=== PATIENT | male | born 1995 | race Caucasian/White ===

== ENCOUNTER 2024-02-03 09:47 | Emergency (ER) | payer OTHER ==
[2024-02-03] MEDS ORDERED: TETRACAINE HCL 0.5% 4ML OPTH ONE (10:07)
[2024-02-03] MEDS ORDERED: FLUORESCEIN SODIUM 1 MG/WRAP ONE (10:07)
--- NOTE | 2024-02-03 10:28 | EDPHYS ---
Physician Documentation [facility] Name: Gio Stapleton Age: 28 yrs Sex: Male : 1995 Arrival Date: 02/03/2024 Time: 09:47 Bed 15 Private MD: ED Physician Adolfo Merritt HPI: 02/02 10:17 This 28 yrs old Male presents to ER via Ambulatory with complaints of Eye Problem. rn 10:17 The patient is experiencing foreign body sensation, tearing, to the left eye, caused by rn debris, dust. Onset: The symptoms/episode began/occurred yesterday. Aggravated by nothing. Alleviated by nothing. Severity of symptoms: At their worst the symptoms were moderate in the emergency department the symptoms are unchanged. The patient has not experienced similar symptoms in the past. Patient sent over from [facility], diagnosed with corneal abrasion, prescribed antibiotics. Patient reports got something in his eye while landscaping yesterday. Was not high-speed injury, reports irritated eyes with clear watery drainage. Only left eye.. Historical: - Allergies: 09:56 Codeine; hb 09:56 PENICILLINS; hb - Home Meds: 09:56 trazodone Oral [Active]; hb - PMHx: 09:56 Bipolar disorder; hb - PSHx: 09:56 None; hb - Immunization history:: Adult Immunizations up to date. - Infectious Disease History:: Denies. - Social history:: Smoking status: Patient denies any tobacco usage or history of. - Family history:: not pertinent. - Hospitalizations: : No recent hospitalization is reported. ROS: 10:17 Constitutional: Negative for fever, chills, and weight loss, Eyes: Positive for foreign rn body sensation left eye with drainage Exam: 10:17 Constitutional: This is a well developed, well nourished patient who is awake, alert, rn and in no acute distress. Head/Face: Normocephalic, atraumatic. Eyes: Pupils equal round and reactive to light, extra-ocular motions intact. Lids and lashes normal. Erythematous conjunctiva left eye with clear drainage. With flourescein, appears to have corneal abrasion at the 5 o'clock position of left cornea. Negative Yogesh sign. Vital Signs: 09:55 BP 131 / 65; Pulse 62; Resp 16; Temp 98.1(O); Pulse Ox 100% on R/A; Weight 94.35 kg; hb Height 6 ft. 1 in. ; Pain 610; 09:55 Body Mass Index 27.44 (94.35 kg, 185.42 cm) hb 09:55 Pain Scale: Adult hb MDM: 09:50 Patient medically screened. rn 10:25 Differential diagnosis: Corneal abrasion of left eye. Corneal ulcer of left eye. Data rn reviewed: vital signs, nurses notes, and as a result, I will discharge patient. Counseling: I had a detailed discussion with the patient and/or guardian regarding the historical points, exam findings, and any diagnostic results supporting the discharge/admit diagnosis, the need for outpatient follow up, to return to the emergency department if symptoms worsen or persist or if there are any questions or concerns that arise at home. Response to treatment: the patient's symptoms have mildly improved after treatment, and as a result, I will discharge patient. Special discussion: I discussed with the patient/guardian in detail that at this point there is no indication for admission to the hospital. It is understood, however, that if the symptoms persist or worsen the patient needs to return immediately for re-evaluation. Based on the history and exam findings, there is no indication for further emergent testing or inpatient evaluation. I discussed with the patient/guardian the need to see the opthamologist for further evaluation of the symptoms. ED course: Patient with improvement after tetracaine drops. No foreign body identified. Has corneal abrasion. Patient already irrigated eye last night. Has prescription from physician that he saw this morning for gentamicin antibiotics. Will discharge home with return precautions.. 02/02 09:56 Order name: Eye Tray; Complete Time: 10:10 rn 02/02 09:56 Order name: Fluoresene Opth strip; Complete Time: 10:10 rn Administered Medications: 10:10 Drug: Tetracaine Ophthalmic Drops 0.5 % 1 drops Ophthalmic once Route: Ophthalmic; bp Site: left eye; Disposition Summary: 02/03/24 10:27 Discharge Ordered Notes: Location: Home rn Problem: new rn Symptoms: have improved rn Condition: Stable rn Diagnosis - Injury of conjunctiva and corneal abrasion without foreign body, left eye rn Followup: rn - With: Private Physician - When: As needed - Reason: Recheck today's complaints, Re-evaluation by your physician Discharge Instructions: - Discharge Summary Sheet rn - Corneal Abrasion rn Forms: - Medication Reconciliation Form rn - Thank You Letter rn - Antibiotic pattern gater - Prescription Opioid Use rn - Patient Portal Instructions rn - Leadership Thank You Letter rn Signatures: Adolfo Merritt MD MD rn Baxter, Heather, RN RN hb Peltier, Brian, RN RN bp Corrections: (The following items were deleted from the chart) 10:26 10:17 Constitutional: This is a well developed, well nourished patient who is awake, rn alert, and in no acute distress. Head/Face: Normocephalic, atraumatic. Eyes: Pupils equal round and reactive to light, extra-ocular motions intact. Lids and lashes normal. Erythematous conjunctiva left eye with clear drainage. Appears to have either foreign body or corneal abrasion at the 5 o'clock position of left cornea. rn 10:32 10:17 Constitutional: This is a well developed, well nourished patient who is awake, rn alert, and in no acute distress. Head/Face: Normocephalic, atraumatic. Eyes: Pupils equal round and reactive to light, extra-ocular motions intact. Lids and lashes normal. Erythematous conjunctiva left eye with clear drainage. Appears to have corneal abrasion at the 5 o'clock position of left cornea. Negative Yogesh sign. rn
--- NOTE | 2024-02-03 10:28 | ER ---
Nurse's Notes [facility] Name: Gio Stapleton Age: 28 yrs Sex: Male : 1995 Arrival Date: 02/03/2024 Time: 09:47 Bed 15 Private MD: Diagnosis: Injury of conjunctiva and corneal abrasion without foreign body, left eye Presentation: 02/02 09:55 Chief complaint: FB in left eye while landscaping yesterday. Coronavirus screen: At this time, the client does not indicate any symptoms associated with coronavirus-19. Ebola Screen: No symptoms or risks identified at this time. Initial Sepsis Screen: Does the patient meet any 2 criteria? No. Patient's initial sepsis screen is negative. Does the patient have a suspected source of infection? No. Patient's initial sepsis screen is negative. Risk Assessment: Do you want to hurt yourself or someone else? Patient reports no desire to harm self or others. Onset of symptoms was February 02, 2024. 09:55 Method Of Arrival: Ambulatory hb 09:55 Acuity: ELIEZER 4 hb Triage Assessment: 09:56 General: Appears in no apparent distress. Behavior is calm, cooperative. Pain: Pain hb currently is 6 out of 10 on a pain scale. EENT: Reports pain in left eye. Neuro: Level of Consciousness is awake, alert, obeys commands, Oriented to person, place, time, situation. Cardiovascular: Patient's skin is warm and dry. Respiratory: Respiratory effort is even, unlabored, Respiratory pattern is regular, symmetrical. Historical: - Allergies: 09:56 Codeine; hb 09:56 PENICILLINS; hb - Home Meds: 09:56 trazodone Oral [Active]; hb - PMHx: 09:56 Bipolar disorder; hb - PSHx: 09:56 None; hb - Immunization history:: Adult Immunizations up to date. - Infectious Disease History:: Denies. - Social history:: Smoking status: Patient denies any tobacco usage or history of. - Family history:: not pertinent. - Hospitalizations: : No recent hospitalization is reported. Vital Signs: 09:55 BP 131 / 65; Pulse 62; Resp 16; Temp 98.1(O); Pulse Ox 100% on R/A; Weight 94.35 kg; hb Height 6 ft. 1 in. ; Pain 6/10; 09:55 Body Mass Index 27.44 (94.35 kg, 185.42 cm) hb 09:55 Pain Scale: Adult hb ED Course: 09:49 Patient arrived in ED. mg5 09:50 Adolfo Merritt MD is Attending Physician. rn 09:53 Kvng Magaña, RN is Primary Nurse. bp 09:56 Triage completed. hb 09:57 Arm band placed on. hb Administered Medications: 10:10 Drug: Tetracaine Ophthalmic Drops 0.5 % 1 drops Ophthalmic once Route: Ophthalmic; bp Site: left eye; Outcome: 10:27 Discharge ordered by . rn 10:38 Patient left the ED. aa5 Signatures: Adolfo Merritt MD MD rn Calderon, Audri, RN RN aa5 Debbie Chan, RN RN Kvng Hand, RN RN Susanna Osorio mg5
[2024-02-03 13:15] VITALS: BP 131/65; TEMP 98.1; O2SAT 100
== END 2024-02-03 10:38 | disposition home or self-care (01) ==
LOC: ER 09:47
DX: S05.02XA Injury of conjunctiva and corneal abrasion without foreign body, left eye, initial encounter (principal); Z88.0 Allergy status to penicillin; Z88.5 Allergy status to narcotic agent
CPT/HCPCS: 99282

== ENCOUNTER 2024-02-25 20:09 | Emergency (ER) | payer OTHER ==
--- OUTSIDE RECORDS SUMMARY | 2024-02-25 20:12 | XMS REPORT | Continuity of Care Document ---
Author Name Unknown Address [address] [facility] [address] [id number] [facility] Address [address] [facility] 1 [address] [place] [address] Care Team Providers Care Board Saw Runner Name Role Phone BEHZAD COHEN Attending Clinician Unavailable Behzad Cohen MD Attending Clinician [phone] Sonia Miller Attending Clinician [phone] SONIA MEYERS Attending Clinician Unavailable Harpreet Valles MD Attending Clinician [phone] Seng Allen MD Attending Clinician [phone] SENG ALLEN Attending Clinician Unavailable Pola Collazo Attending Clinician [phone] POLA LUIS Attending Clinician Unavailable Seng Allen MD Admitting Clinician [phone] SENG ALLEN Admitting Clinician Unavailable Payers Payer Name Policy Type Policy Number Effective Date Expirati on Date Source [facility] [id number] 2014 00:00:00 Problems Condition Name Condition Details Condition Category Status Onset Date Resolution Date Last Treatment Date Treating Clinician Comments Source Chlamydia trachomati s infection of lower genitourin primitivo sites Chlamydia trachomati s infection of lower genitourin primitivo sites Disease Active 07-10 00:00: 00 [facility] Tobacco use disorder Tobacco use disorder Disease Active 07-06 00:00: 00 [facility] Exposure to STD Exposure to STD Disease Active 07-06 00:00: 00 [facility] Allergies, Adverse Reactions, Alerts Allergy Name Allergy Type Status Severity Reaction(s) Onset Date Inactive Date Treating Clinician Comments Source PENICILL INS Drug Class Active Anaphylaxis 07-06 00:00: 00 [facility] Codeine Propensi ty to adverse reaction s Active Rash 07-06 00:00: 00 [facility] Penicill ins Propensi ty to adverse reaction s Active Anaphylaxis 07-06 00:00: 00 [facility] CODEINE DRUG INGREDI Active Rash 07-06 00:00: 00 [facility] Social History Social Habit Start Date Stop Date Quantity Comments Source Sex Assigned At [facility] Exposure to SARS-CoV-2 (event) [facility] Cig[facility] smoked current (pack per day) - Reported 2020-06-04 00:00:00 2020-06-04 00:00:00 [facility] Cigarette pack-years 2020-06-04 00:00:00 2020-06-04 00:00:00 [facility] Tobacco use and exposure 2020-06-04 00:00:00 2020-06-04 00:00:00 Never used [facility] Alcohol intake 2020-06-04 00:00:00 2020-06-04 00:00:00 Current drinker of alcohol (finding) [facility] Smoking Status Start Date Stop Date Source Current every day smoker 2020-06-04 00:00:00 [facility] Medications Ordered Medication Name Filled Medication Name Start Date Stop Date Current Medication? Ordering Clinician Indication Dosage Frequency Signature (SIG) Comments Components Source iohexol (OMNIPAQUE 350 BULK) 100 mL 06-11 13:15: 00 06-11 13:41 :00 No 100mL 100 mL, Oral, ONCE, 1 dose, 06/11/20 at 0815, Routine [facility] lidocaine 1% (XYLOCAINE) 10 mg/mL (1 %) injection 20 mL 06-02 02:45: 00 06-02 01:49 :00 No 20mL 20 mL, Infiltrati on, ONCE, 1 dose, 06/01/20 at 2145, Routine [facility] lidocaine 1% (XYLOCAINE) 10 mg/mL (1 %) injection 20 mL 06-02 01:30: 00 06-02 01:30 :00 No 20mL 20 mL, Infiltrati on, ONCE, 1 dose, [address] 06/01/20 at 2030, Routine [facility] ketorolac (TORADOL) injection 30 mg 06-01 23:15: 00 06-01 22:19 :00 No 30mg 30 mg, Slow IV Push, ONCE, 1 dose, [address] 06/01/20 at 1815, NANETTE
Fa culty member approving Restricted medication : EMERGENCY ROOM, [facility] clindamycin (CLEOCIN) injection 600 mg 06-01 23:15: 00 06-01 22:20 :00 No 600mg 600 mg, IV Piggyback, ONCE, 1 dose, [address] 06/01/20 at 1815, NANETTE
Re ason for Anti-Infec tive: Documented Infection< br>Documen sai Infection Site: Skin / Soft Tissue
Duration of Therapy: 7 days
Re stricted use approved by: ADC PROVIDER [facility] ibuprofen (MOTRIN IB) 200 mg tablet 06-01 00:00: 00 Yes [id number] 400mg Take 2 tablets by mouth every 6 (six) hours as needed for Pain (scale 1-3). [facility] acetaminoph en (TYLENOL) 325 mg tablet 06-01 00:00: 00 06-02 04:59 :00 No [id number] 650mg Take 2 tablets by mouth every 6 (six) hours as needed for Pain (scale 1-3). [facility] sulfamethox azole-trime thoprim (BACTRIM DS) 800-160 mg per tablet 06-01 00:00: 00 06-12 04:59 :00 No [id number] 1{tbl} Take 1 tablet by mouth 2 (two) times daily for 10 days. [facility] No known medications No Un jose j [facility] Vital Signs Vital Name Observation Time Observation Value Comments S dimitri Systolic blood pressure 2020-06-04 15:35:00 119 mm[Hg] [facility] Diastolic blood pressure 2020-06-04 15:35:00 63 mm[Hg] [facility] Heart rate 2020-06-04 15:35:00 59 /min Unive [facility] Body temperature 2020-06-04 15:35:00 36.17 Alannah [facility] Respiratory rate 2020-06-04 15:35:00 20 /min [facility] Body weight 2020-06-04 15:35:00 81.012 kg [facility] BMI 2020-06-04 15:35:00 23.56 kg/m2 [facility] Systolic blood pressure 2020-06-02 02:00:00 117 mm[Hg] [facility] Diastolic blood pressure 2020-06-02 02:00:00 50 mm[Hg] [facility] Heart rate 2020-06-02 02:00:00 62 /[facility] Respiratory rate 2020-06-02 02:00:00 18 /min [facility] Oxygen saturation in Arterial blood by Pulse oximetry 2020-06-02 02:00:00 100 /min [facility] Body temperature 2020-06-02 00:00:00 36.78 Alannah [facility] Systolic blood pressure 2020-06-01 22:10:00 136 mm[Hg] [facility] Diastolic blood pressure 2020-06-01 22:10:00 59 mm[Hg] [facility] Heart rate 2020-06-01 22:10:00 69 /min [facility] Body temperature 2020-06-01 22:10:00 37 Alannah [facility] Respiratory rate 2020-06-01 22:10:00 18 /min [facility] Oxygen saturation in Arterial blood by Pulse oximetry 2020-06-01 22:10:00 99 /min [facility] Body weight 2020-06-01 21:00:00 90.719 kg [facility] BMI 2020-06-01 21:00:00 26.39 kg/m2 [facility] Procedures Procedure Date / Time Performed Performing Clinician Source [place] RETROGRADE URETHROGRAPHY 2020-06-11 13:39:08 Sonia Meyers [facility] POCT URINALYSIS AUTO 2020-06-04 15:38:00 Luigi Sonia Kay [facility] HEPATIC FUNCTION PANEL (26521) (ALB,T.PRO,BILI T,BU/BC,ALT,AST,ALK PHOS) 2020-06-01 22:16:00 Pola Luis [facility] BASIC METABOLIC PANEL (NA, K, CL, CO2, GLUCOSE, BUN, CREATININE, CA) 2020-06-01 22:16:00 Pola Luis [facility] CBC WITH DIFF 2020-06-01 22:16:00 Pola Luis [facility] URINALYSIS 2020-06-01 22:16:00 Pola Luis [facility] COVID-19 (ID NOW RAPID TESTING) 2020-06-01 22:16:00 Pola Luis [facility] Encounters Start Date/Time End Date/Time Encounter Type Admission Type Attending [facility] Care Department Encounter ID Source 2021-08-21 12:41:27 Emergency [facility] [id number] [facility] 2023-11-14 16:09:05 2023-11-14 16:09:05 Outpatient [facility] [id number] Zana Ward Charlie 2023-06-01 13:39:03 2023-06-01 13:39:03 Outpatient [facility] [id number] Zana Ward Charlie 2020-06-20 16:15:00 2020-06-20 16:15:00 [facility] [id number] 2020-06-12 00:00:00 2020-06-12 00:00:00 [facility] [id number]..[id number] [facility] 2020-06-11 07:41:59 2020-06-11 23:59:00 Hospital Encounter Sonia Meyers [facility] [id number]..[id number] [facility] 2020-06-11 00:00:00 2020-06-11 00:00:00 Outpatient R LUIGIROSAMARIASONIA [facility] [id number] [facility] 2020-06-07 23:59:00 2020-06-08 00:00:00 Emergency Harpreet Valles [facility] [id number] [facility] 2020-06-04 10:23:35 2020-06-04 11:03:06 Office Visit Sonia Meyers [facility] Profess[facility] [id number] [facility] 2020-06-04 10:30:00 2020-06-04 10:30:00 Outpatient SONIA SÁNCHEZ [facility] [id number] [facility] 2020-06-01 19:01:00 2020-06-01 21:41:00 Emergency [facility] [id number] [facility] 2020-06-01 19:01:00 2020-06-01 19:01:00 Emergency X SENG ALLEN [facility] [id number] [facility] 2020-06-01 16:03:00 2020-06-01 18:00:00 Emergency Janelle Pola Pam [facility] [id number] [facility] 2020-06-01 15:47:00 2020-06-01 15:47:00 Emergency X POLA LUIS [facility] ERT [id number] [facility] Results Test Description Test Time Test Comments Results Result Comments Source [place] RETROGRADE URETHROGRAPHY 13:46:03 HISTORY: Penile abscess, rule out fistula. COMPARISON: None. TECHNIQUE: 8 Chinese Nicolas catheter was advanced into the glans penisportion of the ureter and balloon was inflated using small amount of roomair. Contrast media was injected under fluoroscopic control with multiplefluoroscopic images acquired during contrast injection. The patienttolerated the procedure well and experienced no complications. FINDINGS: Penile urethra, bulbous portion of the urethra as well asmembranous portion of the ureters are well-visualized and appear normal.The base of the bladder at verumontanum appear normal. No leaking of dye outside of the urethra or any stricture visualized. CONCLUSIONS: Normal retrograde urethrogram study. [facility], Radiant Results Inft User - 06/11/2020 8:47 AM CDTHISTORY: Penile abscess, rule out fistula.COMPARISON: None.TECHNIQUE: 8 Chinese Nicolas catheter was advanced into the glans penisportion of the ureter and balloon was inflated using small amount of roomair. Contrast media was injected under fluoroscopic control with multiplefluoroscopic images acquired during contrast injection. The patienttolerated the procedure well and experienced no complications.FINDINGS: Penile urethra, bulbous portion of the urethra as well asmembranous portion of the ureters are well-visualized and appear normal.The base of the bladder at verumontanum appear normal.No leaking of dye outside of the urethra or any stricture visualized.CONCLUSIONS: Normal retrograde urethrogram study. [facility] URINALYSIS, [id number] 15:39:00 * Test Item Value Reference Range Interpretation Comme nts POCT U SP GRAV (test code = 3255) 1.025 mg/dl 1.005-1.025 POCT PH U (test code = 3254) 5.5 mg/dl 5-8 POCT U LEUK EST (test code = 3263) negative Negative - Negative POCT U NIT (test code = 3262) negative Negative - Negati ve POCT U PROT (test code = 3259) negative Negative - Negative POCT U GLU (test code = 3256) negative Negative - Negati ve POCT U KETONE (test code = 3258) negative Negative - Negative POCT U UROBILI (test code = 3260) 0.2 mg/dl 0.2-1 POCT U BILI (test code = 3261) negative Negative - Negative POCT U BLD (test code = 3257) trace Negative - Negati ve POCT U COLOR (test code = 3266) yellow POCT U APPEAR (test code = 3267) clear [facility] NOW RAPID TEST[facility])2020-06-01 22:48:00* Test Item Value Reference Range Interpretation Comme nts SARS-CoV-2 Rapid ID NOW (test code = 19763-1) Not Detected Not Detected SAULO (test code = SAULO) ID NOW COVID-19 As say is an isothermal nucleic acid amplification test intended for the qualitative detection of nucleic acid from SARS-CoV-2 viral RNA in nasopharyngeal ([employer]) specimens. It is used under Emergency Use Authorization (EUA) by FDA. The limit of detection (LOD) of the assay is 125 Genome Equivalents/mL. A positive result is indicative of the presence of SARS-CoV-2 RNA. ?Clinical correlation with patient history and other diagnostic information is necessary to determine patient infection status. A negative (Not Detected) result does not preclude SARS-CoV-2 infection. In patients with clinical symptoms and other tests that are consistent with SARS-CoV-2 infection, negative results should be treated as presumptive negative and a new specimen should be tested with alternative PCR molecular test. Invalid: Please collect a new specimen for repeat patient testing if clinically indicated. Lab Interpretation (test code = 19880-4) Normal [facility] Metabolic Panel (NA, K, CL, CO2, GLUCOSE, BUN, CREATININE, CA)2020-06-01 22:44:00* Test Item Value Reference Range Interpretation Comme nts NA (test code = 1235308738) 138 mmol/L 135-145 K (test code = 8237436293) 4.9 mmol/L 3.5-5 CL (test code = 8908733591) 104 mmol/L 98-108 CO2 TOTAL (test code = 7273254420) 27 mmol/L 23-31 AGAP (test code = 6033284547) 2-16 BUN (test code = 6839035548) 17 mg/dL 7-23 GLUCOSE (test code = 0510725935) 103 mg/dL 70-110 CREATININE (test code = 9854155978) 0.81 mg/dL 0.6-1.25 CALCIUM (test code = 7102763187) 9.5 mg/dL 8.6-10.6 eGFR Calculation (Non-) (test code = 4390942135) mL/min/1.73m2 eGFR Calculation () (test code = 7778729720) mL/min/1.73m2 SAULO (test code = SAULO) Association of Glomerular Filtration Rate (GFR) and Staging of Kidney Disease* + -+ + ---+| GFR (mL/min/1.73 m2) ?| With Kidney Damage ?| ?Without Kidney Damage+ -------+ ------+ ---------+| ?>90 ?| ?Stage one ?| ? Normal ?+ --+ -+ ----+| ?60-89 ?| ?Stage two ?| ? Decreased GFR ? + -+ + ---+| ?30-59 ?| ?Stage three ?| ? Stage three ? + -+ + ---+| ?15-29 ?| ?Stage four ? | ? Stage four ?+ --+ -+ ----+| ?<15 (or dialysis) ? ?| ?Stage five ? | ? Stage five ?+ --+ -+ ----+ *Each stage assumes the associated GFR level has been in effect for at least three months. ?Stages 1 to 5, with or without kidney disease, indicate chronic kidney disease. Notes: Determination of stages one and two (with eGFR >59mL/min/1.73 m2) requires estimation of kidney damage for at least three months as defined by structural or functional abnormalities of the kidney, manifested by either:Pathological abnormalities or Markers of kidney damage (including abnormalities in the composition of the blood or urine or abnormalities in imaging tests). [facility] (ALB, T.PRO, BILI T, BU/BC, ALT, AST, ALK PHOS)2020-06-01 22:44:00* Test Item Value Reference Range Interpretation Comme nts TOTAL BILI (test code = 4019724023) 0.6 mg/dL 0.1-1.1 BILI UNCON (test code = 9944344691) 0.7 mg/dL 0.1-1.1 BILI CONJ (test code = 5153007458) 0.0 mg/dL 0-0.3 T PROTEIN (test code = 7453443191) 7.7 g/dL 6.3-8.2 ALBUMIN (test code = 5539095492) 4.4 g/dL 3.5-5 ALK PHOS (test code = 5697777934) 42 U/L 34-122 ALTv (test code = 1742-6) 13 U/L 5-50 AST(SGOT) (test code = 5150131140) 33 U/L 13-40 Lab Interpretation (test cod e = 27627-3) Normal [facility]2020[facility] 22:39:00* Test Item Value Reference Range Interpretation Comme nts APPEARANCE (test code = 4775451121) Clear Clear COLOR (test code = 5700812839) Yellow Yellow PH (test code = 3140020636) 4.8-8.0 SP GRAVITY (test code = 0397053197) 1.003-1.030 GLU U QUAL (test code = 8516504035) Normal Normal BLOOD (test code = 1960747763) Negative Negative KETONES (test code = 8852382063) Negative Negative PROTEIN (test code = 2887-8) Negative Negative UROBILIN (test code = 5459106217) Normal Normal BILIRUBIN (test code = 2553728265) Negative Negative NITRITE (test code = 1786522010) Negative Negative LEUK LAURY (test code = 8384944465) Negative Negative RBC/HPF (test code = 0936726449) <1 See_Comment [Automated messa ge] The system which generated this result transmitted reference range: 0 - 3 HPF. The reference range was not used to interpret this result as normal/abnormal. WBC/HPF (test code = 1519520838) <1 See_Comment [Automated messa ge] The system which generated this result transmitted reference range: 0 - 5 HPF. The reference range was not used to interpret this result as normal/abnormal. BACTERIA (test code = 3468134382) Negative Negative Lab Interpretation (test code = 21692-2) Normal [facility] [id number] 22:29:00* Test Item Value Reference Range Interpretation Comme nts WBC (test code = 6690-2) See_Comment [Automated messa ge] The system which generated this result transmitted reference range: 4.20 - 10.70 10*3/?L. The reference range was not used to interpret this result as normal/abnormal. RBC (test code = 789-8) See_Comment [Automated [employer]] The system which generated this result transmitted reference range: 4.26 - 5.52 10*6/?L. The reference range was not used to interpret this result as normal/abnormal. HGB (test code = 718-7) 15.9 g/dL 12.2-16.4 HCT (test code = 4544-3) 45.5 % 38.4-49.3 MCV (test code = 787-2) 91.4 fL 81.7-95.6 MCH (test code = 785-6) 31.9 pg 26.1-32.7 MCHC (test code = 786-4) 34.9 g/dL 31.2-35 RDW-SD (test code = 49327-3) 41.4 fL 38.5-51.6 RDW-CV (test code = 788-0) 12.4 % 12.1-15.4 PLT (test code = 777-3) See_Comment [Automated [employer]] The system which generated this result transmitted reference range: 150 - 328 10*3/?L. The reference range was not used to interpret this result as normal/abnormal. MPV (test code = 17657-4) 11.0 fL 9.8-13 NRBC/100 WBC (test code = 5728819343) See_Comment [Automated [employer] ss[employer]] The system which generated this result transmitted reference range: 0.0 - 10.0 /100 WBCs. The reference range was not used to interpret this result as normal/abnormal. NRBC x10^3 (test code = 6802392112) <0.01 See_Comment [Automated me ssage] The system which generated this result transmitted reference range: 10*3/?L. The reference range was not used to interpret this result as normal/abnormal. GRAN MAT (NEUT) % (test code = 770-8) 72.0 % IMM GRAN % (test code = 3735447369) 0.40 % LYMPH % (test code = 736-9) 14.9 % MONO % (test code = 5905-5) 8.6 % EOS % (test code = 713-8) 3.7 % BASO % (test code = 706-2) 0.4 % GRAN MAT x10^3(ANC) (test code = 5005353610) 6.63 10*3/uL 1.99-6.95 IMM GRAN x10^3 (test code = 8723475331) 0.04 10*3/uL 0-0.06 LYMPH x10^3 (test code = 731-0) 1.37 10*3/uL 1.09-3.23 MONO x10^3 (test code = 742-7) 0.79 10*3/uL 0.36-1.02 EOS x10^3 (test code = 711-2) 0.34 10*3/uL 0.06-0.53 BASO x10^3 (test code = 704-7) 0.04 10*3/uL 0.01-0.09 [facility]"
--- NOTE | 2024-02-25 20:36 | EDPHYS ---
Physician Documentation [facility] Name: Gio Stapleton Age: 28 yrs Sex: Male : 1995 Arrival Date: 02/25/2024 Time: 20:09 Bed IW5 Private MD: ED Physician Nikunj Nowak HPI: 02/25 00:25 This 28 yrs old Male presents to ER via Ambulatory with complaints of Flu Symptoms. ms3 00:25 28-year-old male with past medical history of bipolar disorder presents [place] [facility] [place] for productive cough for 2 days. Patient states he took 2 of his 's azithromycin pills with improvement in his symptoms. Patient states his was recently diagnosed with pneumonia. Patient denies nausea, vomiting, fevers, chills.. Historical: - Allergies: 02/24 20:56 Codeine; km8 - Home Meds: 20:56 Trazodone Oral [Active]; km8 - PMHx: 20:56 Bipolar disorder; km8 - PSHx: 20:56 None; km8 - Immunization history:: Adult Immunizations up to date. - Infectious Disease History:: Denies. - Social history:: Smoking status: Patient denies any tobacco usage or history of. Patient/guardian denies using alcohol, street drugs. ROS: 02/25 00:25 Abdomen/GI: Negative for abdominal pain, nausea, vomiting, diarrhea, and constipation, ms3 MS/Extremity: Negative for injury and deformity, Skin: Negative for injury, rash, and discoloration, Constitutional: Positive for chills, Respiratory: Positive for cough, Exam: 00:25 Constitutional: This is a well developed, well nourished patient who is awake, alert, ms3 and in no acute distress. Head/Face: Normocephalic, atraumatic. Chest/axilla: Normal chest wall appearance and motion. Nontender with no deformity. Cardiovascular: Regular rate and rhythm with a normal S1 and S2. No gallops, murmurs, or rubs. Normal PMI, no JVD. No pulse deficits. Respiratory: Lungs have equal breath sounds bilaterally, clear to auscultation and percussion. No rales, rhonchi or wheezes noted. No increased work of breathing, no retractions or nasal flaring. Abdomen/GI: Soft, non-tender, with normal bowel sounds. No distension or tympany. No guarding or rebound. No evidence of tenderness throughout. Skin: Warm, dry with normal turgor. Normal color with no rashes, no lesions, and no evidence of cellulitis. MS/ Extremity: Pulses equal, no cyanosis. Neurovascular intact. Full, normal range of motion. Vital Signs: 02/24 20:54 BP 127 / 70; Pulse 76; Resp 16; Temp 98.4(O); Pulse Ox 99% on R/A; Weight 95.25 kg; km8 Height 6 ft. 1 in. ; Pain 2/10; 20:54 Body Mass Index 27.71 (95.25 kg, 185.42 cm) km8 20:54 Pain Scale: Adult km8 [place] Coma Score: 20:58 Eye Response: spontaneous(4). Motor Response: obeys commands(6). Verbal Response: km8 oriented(5). Total: 15. MDM: 20:35 Patient medically screened. ms3 02/25 00:25 Differential Diagnosis: Bronchitis Influenza Upper Respiratory Infection Viral Syndrome ms3 Pneumonia. Data reviewed: vital signs, nurses notes, and as a result, I will discharge patient. Counseling: I had a detailed discussion with the patient and/or guardian regarding the historical points, exam findings, and any diagnostic results supporting the discharge/admit diagnosis, the need for outpatient follow up, to return to the emergency department if symptoms worsen or persist or if there are any questions or concerns that arise at home. Special discussion: I discussed with the patient/guardian in detail that at this point there is no indication for admission to the hospital. It is understood, however, that if the symptoms persist or worsen the patient needs to return immediately for re-evaluation. Administered Medications: No medications were administered Disposition Summary: 02/25/24 20:35 Discharge Ordered Notes: Location: Home ms3 Condition: Stable ms3 Diagnosis - Cough ms3 - Chills (without fever) ms3 - Vomiting ms3 Followup: ms3 - With: Manjit Preciado DO - When: 2 - 3 days - Reason: Recheck today's complaints Discharge Instructions: - Discharge Summary Sheet ms3 - Cough, Adult ms3 Forms: - Medication Reconciliation Form ms3 - Antibiotic Education ms3 - Prescription Opioid Use ms3 - Patient Portal Instructions ms3 - Leadership Thank You Letter ms3 Prescriptions: - azithromycin 250 mg Oral tablet - take 1 dose pack ORAL route as directed on dose pack For 250 mg dose pack: take ms3 500 mg today (day 1), then 250 mg for 4 days (days 2-5); 6 tablet; Refills: 0, Product Selection Permitted - Tessalon Perles 100 mg Oral Capsule - take 1 capsule ORAL route every 8 hours As needed; 15 capsule; Refills: 0, ms3 Product Selection Permitted Signatures: Nikunj Nowak DO DO ms3 Corazon Gutierrez, RN RN km8
--- NOTE | 2024-02-25 21:05 | ER ---
Nurse's Notes [facility] Name: Gio Stapleton Age: 28 yrs Sex: Male : 1995 Arrival Date: 02/25/2024 Time: 20:09 Bed IW5 Private MD: Diagnosis: Cough;Chills (without fever);Vomiting Presentation: 02/24 20:54 Chief complaint: Patient states: cough, sore throat, body aches, and fever for 1 week; km8 took a z-pack for 2 days and starting feeling better. Coronavirus screen: Client denies travel out of the [place] in the last 14 days. Ebola Screen: No symptoms or risks identified at this time. Initial Sepsis Screen: Does the patient meet any 2 criteria? No. Patient's initial sepsis screen is negative. Does the patient have a suspected source of infection? No. Patient's initial sepsis screen is negative. Risk Assessment: Do you want to hurt yourself or someone else? Patient reports no desire to harm self or others. Onset of symptoms was February 18, 2024. 20:54 Method Of Arrival: Ambulatory km8 20:54 Acuity: ELIEZER 4 km8 Triage Assessment: 20:56 General: Appears in no apparent distress. comfortable, Behavior is calm, cooperative, km8 appropriate for age. Pain: Complains of pain in throat Pain currently is 2 out of 10 on a pain scale. EENT: Reports nasal discharge sore throat. Neuro: Level of Consciousness is awake, alert, obeys commands, Oriented to person, place, time, situation. Cardiovascular: Denies chest pain, shortness of breath, Patient's skin is warm and dry. Respiratory: Airway is patent Respiratory effort is even, unlabored, Respiratory pattern is regular, symmetrical. GI: Reports nausea, vomiting. : No signs and/or symptoms were reported regarding the genitourinary system. Derm: No signs and/or symptoms reported regarding the dermatologic system. Skin is intact, is healthy with good turgor, Skin is dry, Skin is pink, warm \T\ dry. normal, Skin temperature is warm. Musculoskeletal: No signs and/or symptoms reported regarding the musculoskeletal system. Range of motion: intact in all extremities. Historical: - Allergies: 20:56 Codeine; km8 - Home Meds: 20:56 Trazodone Oral [Active]; km8 - PMHx: 20:56 Bipolar disorder; km8 - PSHx: 20:56 None; km8 - Immunization history:: Adult Immunizations up to date. - Infectious Disease History:: Denies. - Social history:: Smoking status: Patient denies any tobacco usage or history of. Patient/guardian denies using alcohol, street drugs. Screenin:58 [facility] ED Fall Risk Assessment (Adult) History of falling in the last 3 months, km8 including since admission No falls in past 3 months (0 pts) Confusion or Disorientation No (0 pts) Intoxicated or Sedated No (0 pts) Impaired Gait No (0 pts) Mobility Assist Device Used No (0 pt) Altered Elimination No (0 pt) Score/Fall Risk Level 0 - 2 = Low Risk Oriented to surroundings, Maintained a safe environment, Educated pt \T\ family on fall prevention, incl call for assistance when getting out of bed, Assessed \T\ reinforced patient's understanding of fall precautions. Abuse screen: Denies threats or abuse. Denies injuries from another. Nutritional screening: No deficits noted. Tuberculosis screening: No symptoms or risk factors identified. Assessment: 20:58 Reassessment: see triage assessment. km8 Vital Signs: 20:54 BP 127 / 70; Pulse 76; Resp 16; Temp 98.4(O); Pulse Ox 99% on R/A; Weight 95.25 kg; km8 Height 6 ft. 1 in. ; Pain 2/10; 20:54 Body Mass Index 27.71 (95.25 kg, 185.42 cm) km8 20:54 Pain Scale: Adult km8 [place] Coma Score: 20:58 Eye Response: spontaneous(4). Motor Response: obeys commands(6). Verbal Response: km8 oriented(5). Total: 15. ED Course: 20:12 Patient arrived in ED. rg4 20:14 Nikunj Nowak DO is Attending Physician. ms3 20:35 Manjit Preciado DO is Referral Physician. ms3 20:56 Triage completed. km8 20:56 Arm band placed on right wrist. km8 20:58 Patient has correct armband on for positive identification. km8 20:58 No provider procedures requiring assistance completed. Patient did not have IV access km8 during this emergency room visit. 21:04 Provided Education on: complete ABX, do not bite fidel medellin. km8 Administered Medications: No medications were administered Medication: 20:58 VIS not applicable for this client. km8 Outcome: 20:35 Discharge ordered by . ms3 21:04 Discharged to home ambulatory, km8 21:04 Condition: good 21:04 Discharge instructions given to patient, Instructed on discharge instructions, follow up and referral plans. medication usage, Demonstrated understanding of instructions, follow-up care, medications, Prescriptions given X 2, 21:04 Patient left the ED. km8 Signatures: Theodora Franz4 Nikunj Nowak, DO DO ms3 Corazon Gutierrez, RN RN km8
[2024-02-25 21:27] VITALS: BP 127/70; TEMP 98.4; O2SAT 99
== END 2024-02-25 21:04 | disposition home or self-care (01) ==
LOC: ER 20:09
DX: R05.9 Cough, unspecified (principal); R68.83 Chills (without fever); R11.10 Vomiting, unspecified; F31.9 Bipolar disorder, unspecified; Z88.5 Allergy status to narcotic agent
CPT/HCPCS: 99283

== ENCOUNTER 2024-04-15 04:20 | Emergency (ER) | payer OTHER ==
--- OUTSIDE RECORDS SUMMARY | 2024-04-15 04:24 | XMS REPORT | Continuity of Care Document ---
Author Name Unknown Address [address] [facility] [address] [id number] [facility] Address [address] [facility] [address] [place] [address] Care Team Providers Care Oil Heaterman Name Role Phone BEHZAD COHEN Attending Clinician Unavailable Behzad Cohen MD Attending Clinician [phone] Sonia Miller Attending Clinician [phone] SONIA MEYERS Attending Clinician Unavailable Harpreet Valles MD Attending Clinician [phone] Seng Allen MD Attending Clinician SENG ALLEN Attending Clinician Unavailable Pola Collazo Attending Clinician [phone] POLA LUIS Attending Clinician Unavailable Seng Allen MD Admitting Clinician SENG ALLEN Admitting Clinician Unavailable Payers Payer Name Policy Type Policy Number Effective Date Expirati on Date Source [facility] [id number] 2014 00:00:00 Problems Condition Name Condition Details Condition Category Status Onset Date Resolution Date Last Treatment Date Treating Clinician Comments Source Chlamydia trachomati s infection of lower genitourin primitivo sites Chlamydia trachomati s infection of lower genitourin primitivo sites Disease Active 07-10 00:00: 00 [facility] Tobacco use disorder Tobacco use disorder Disease Active 07-06 00:00: 00 [facility] Exposure to STD Exposure to STD Disease Active 07-06 00:00: 00 [facility] Allergies, Adverse Reactions, Alerts Allergy Name Allergy Type Status Severity Reaction(s) Onset Date Inactive Date Treating Clinician Comments Source PENICILL INS Drug Class Active Anaphylaxis 07-06 00:00: 00 [facility] Codeine Propensi ty to adverse reaction s Active Rash 07-06 00:00: 00 [facility] Penicill ins Propensi ty to adverse reaction s Active Anaphylaxis 07-06 00:00: 00 [facility] CODEINE DRUG INGREDI Active Rash 07-06 00:00: 00 [facility] Social History Social Habit Start Date Stop Date Quantity Comments Source Sex Assigned At [facility] Exposure to SARS-CoV-2 (event) [facility] Cigarettes smoked current (pack per day) - Reported 2020-06-04 00:00:00 2020-06-04 00:00:00 [facility] Cigarette pack-years 2020-06-04 00:00:00 2020-06-04 00:00:00 [facility] Tobacco use and exposure 2020-06-04 00:00:00 2020-06-04 00:00:00 Never used [facility] Alcohol intake 2020-06-04 00:00:00 2020-06-04 00:00:00 Current drinker of alcohol (finding) [facility] Smoking Status Start Date Stop Date Source Current every day smoker 2020-06-04 00:00:00 [facility] Medications Ordered Medication Name Filled Medication Name Start Date Stop Date Current Medication? Ordering Clinician Indication Dosage Frequency Signature (SIG) Comments Components Source iohexol (OMNIPAQUE 350 BULK) 100 mL 06-11 13:15: 00 06-11 13:41 :00 No 100mL 100 mL, Oral, ONCE, 1 dose, 06/11/20 at 0815, Routine [facility] lidocaine 1% (XYLOCAINE) 10 mg/mL (1 %) injection 20 mL 06-02 02:45: 00 06-02 01:49 :00 No 20mL 20 mL, Infiltrati on, ONCE, 1 dose, 06/01/20 at 2145, Routine [facility] lidocaine 1% (XYLOCAINE) 10 mg/mL (1 %) injection 20 mL 06-02 01:30: 00 06-02 01:30 :00 No 20mL 20 mL, Infiltrati on, ONCE, 1 dose, [place] 06/01/20 at 2030, Routine [facility] ketorolac (TORADOL) injection 30 mg 06-01 23:15: 00 06-01 22:19 :00 No 30mg 30 mg, Slow IV Push, ONCE, 1 dose, [place] 06/01/20 at 1815, NANETTE
Fa culty member approving Restricted medication : EMERGENCY ROOM, [facility] clindamycin (CLEOCIN) injection 600 mg 06-01 23:15: 00 06-01 22:20 :00 No 600mg 600 mg, IV Piggyback, ONCE, 1 dose, [place] 06/01/20 at 1815, NANETTE
Re ason for Anti-Infec tive: Documented Infection< br>Documen sai Infection Site: Skin / Soft Tissue
Duration of Therapy: 7 days
Re stricted use approved by: ADC PROVIDER [facility] ibuprofen (MOTRIN IB) 200 mg tablet 06-01 00:00: 00 Yes [id number] 400mg Take 2 tablets by mouth every 6 (six) hours as needed for Pain (scale 1-3). [facility] acetaminoph en (TYLENOL) 325 mg tablet 06-01 00:00: 00 06-02 04:59 :00 No [id number] 650mg Take 2 tablets by mouth every 6 (six) hours as needed for Pain (scale 1-3). [facility] sulfamethox azole-trime thoprim (BACTRIM DS) 800-160 mg per tablet 06-01 00:00: 00 06-12 04:59 :00 No [id number] 1{tbl} Take 1 tablet by mouth 2 (two) times daily for 10 days. [facility] No known medications No Un jose j [facility] Vital Signs Vital Name Observation Time Observation Value Comments S dimitri Systolic blood pressure 2020-06-04 15:35:00 119 mm[Hg] [facility] Diastolic blood pressure 2020-06-04 15:35:00 63 mm[Hg] [facility] Heart rate 2020-06-04 15:35:00 59 /min Unive [facility] Body temperature 2020-06-04 15:35:00 36.17 Alannah [facility] Respiratory rate 2020-06-04 15:35:00 20 /min [facility] Body weight 2020-06-04 15:35:00 81.012 kg [facility] BMI 2020-06-04 15:35:00 23.56 kg/m2 [facility] Systolic blood pressure 2020-06-02 02:00:00 117 mm[Hg] [facility] Diastolic blood pressure 2020-06-02 02:00:00 50 mm[Hg] [facility] Heart rate 2020-06-02 02:00:00 62 /min [facility] Respiratory rate 2020-06-02 02:00:00 18 /min [facility] Oxygen saturation in Arterial blood by Pulse oximetry 2020-06-02 02:00:00 100 /min [facility] Body temperature 2020-06-02 00:00:00 36.78 Alannah [facility] Systolic blood pressure 2020-06-01 22:10:00 136 mm[Hg] [facility] Diastolic blood pressure 2020-06-01 22:10:00 59 mm[Hg] [facility] Heart rate 2020-06-01 22:10:00 69 /min [facility] Body temperature 2020-06-01 22:10:00 37 Alannah [facility] Respiratory rate 2020-06-01 22:10:00 18 /min [facility] Oxygen saturation in Arterial blood by Pulse oximetry 2020-06-01 22:10:00 99 /min [facility] Body weight 2020-06-01 21:00:00 90.719 kg [facility] BMI 2020-06-01 21:00:00 26.39 kg/m2 [facility] Procedures Procedure Date / Time Performed Performing Clinician Source [place] RETROGRADE URETHROGRAPHY 2020-06-11 13:39:08 Sonia Meyers [facility] POCT URINALYSIS AUTO 2020-06-04 15:38:00 Luigi Sonia Kay [facility] HEPATIC FUNCTION PANEL (24207) (ALB,T.PRO,BILI T,BU/BC,ALT,AST,ALK PHOS) 2020-06-01 22:16:00 Pola Luis [facility] BASIC METABOLIC PANEL (NA, K, CL, CO2, GLUCOSE, BUN, CREATININE, CA) 2020-06-01 22:16:00 Pola Luis [facility] CBC WITH DIFF 2020-06-01 22:16:00 Pola Luis [facility] URINALYSIS 2020-06-01 22:16:00 Pola Luis [facility] COVID-19 (ID NOW RAPID TESTING) 2020-06-01 22:16:00 Pola Luis [facility] Encounters Start Date/Time End Date/Time Encounter Type Admission Type Attending [facility] Care Department Encounter ID Source 2021-08-21 12:41:27 Emergency [facility] [id number] [facility] 2023-11-14 16:09:05 2023-11-14 16:09:05 Outpatient [facility] [id number] Zana Ward Charlie 2023-06-01 13:39:03 2023-06-01 13:39:03 Outpatient [facility] [id number] Zana Ward Charlie 2020-06-20 16:15:00 2020-06-20 16:15:00 [facility] [id number] [facility] 2020-06-12 00:00:00 2020-06-12 00:00:00 [facility] [id number]..[id number] [facility] 2020-06-11 07:41:59 2020-06-11 23:59:00 Hospital Encounter Sonia Meyers [facility] [id number]..[id number] [facility] 2020-06-11 00:00:00 2020-06-11 00:00:00 Outpatient R LUIGIROSAMARIASONIA [facility] [id number] [facility] 2020-06-07 23:59:00 2020-06-08 00:00:00 Emergency Harpreet Valles [facility] [id number] [facility] 2020-06-04 10:23:35 2020-06-04 11:03:06 Office Visit Sonia Meyers [facility] Profess[facility] [id number] [facility] 2020-06-04 10:30:00 2020-06-04 10:30:00 Outpatient SONIA SÁNCHEZ [facility] [id number] [facility] 2020-06-01 19:01:00 2020-06-01 21:41:00 Emergency [facility] [id number] [facility] 2020-06-01 19:01:00 2020-06-01 19:01:00 Emergency X SENG ALLEN [facility] ERT [id number] [facility] 2020-06-01 16:03:00 2020-06-01 18:00:00 Emergency Janelle Pola Pam [facility] [id number] [facility] 2020-06-01 15:47:00 2020-06-01 15:47:00 Emergency X POLA LUIS [facility] ERT [id number] [facility] Results Test Description Test Time Test Comments Results Result Comments Source [place] RETROGRADE URETHROGRAPHY 13:46:03 HISTORY: Penile abscess, rule out fistula. COMPARISON: None. TECHNIQUE: 8 [place] Nicolas catheter was advanced into the glans [...] stricture visualized. CONCLUSIONS: Normal retrograde urethrogram study. [facility], Radiant Results Inft User - 06/11/2020 8:47 AM CDTHISTORY: Penile abscess, rule out fistula.COMPARISON: None.TECHNIQUE: 8 Gren[place] Nicolas catheter was advanced into the glans [...] any stricture visualized.CONCLUSIONS: Normal retrograde urethrogram study. [facility] URINALYSIS, [id number] 15:39:00 * Test Item Value Reference Range [...] U APPEAR (test code = 3267) clear [facility] (ID NOW RAPID TESTING)2020-06-01 22:48:00* Test Item Value Reference Range Interpretation Comme nts SARS-CoV-2 Rapid ID NOW (test code = 83397-3) Not Detected Not Detected SAULO (test code = SAULO) ID NOW COVID-19 As say is an isothermal nucleic acid amplification test intended for the qualitative detection of nucleic acid from SARS-CoV-2 viral RNA in nasopharyngeal (TIRE REBUILDER) specimens. It is used under Emergency Use [...] clinically indicated. Lab Interpretation (test code = 34521-1) Normal [facility] Metabolic Panel (NA, K, CL, CO2, GLUCOSE, BUN, CREATININE, CA)2020-06-01 22:44:00* Test Item Value Reference Range Interpretation Comme nts NA (test code = 5779967256) 138 mmol/L 135-145 K (test code = 0150554604) 4.9 mmol/L 3.5-5 CL (test code = 5509107408) 104 mmol/L 98-108 CO2 TOTAL (test code = 3805235227) 27 mmol/L 23-31 AGAP (test code = 5061050264) 2-16 BUN (test code = 1328264933) 17 mg/dL 7-23 GLUCOSE (test code = 0461478541) 103 mg/dL 70-110 CREATININE (test code = 4595470368) 0.81 mg/dL 0.6-1.25 CALCIUM (test code = 8004756100) 9.5 mg/dL 8.6-10.6 eGFR Calculation (Non-) (test code = 5370995930) mL/min/1.73m2 eGFR Calculation () (test code = 6663652564) mL/min/1.73m2 SAULO (test code = SAULO) Association [...] or urine or abnormalities in imaging tests). [facility] (ALB, T.PRO, BILI T, BU/BC, ALT, AST, ALK PHOS)2020-06-01 22:44:00* Test Item Value Reference Range Interpretation Comme nts TOTAL BILI (test code = 3172052448) 0.6 mg/dL 0.1-1.1 BILI UNCON (test code = 2139688169) 0.7 mg/dL 0.1-1.1 BILI CONJ (test code = 4728837426) 0.0 mg/dL 0-0.3 T PROTEIN (test code = 6494260665) 7.7 g/dL 6.3-8.2 ALBUMIN (test code = 4502621600) 4.4 g/dL 3.5-5 ALK PHOS (test code = 4606779637) 42 U/L 34-122 ALTv (test code = 1742-6) 13 U/L 5-50 AST(SGOT) (test code = 7950106400) 33 U/L 13-40 Lab Interpretation (test cod e = 82612-9) Normal [facility]2020-08-09 22:39:00* Test Item Value Reference Range Interpretation Comme nts APPEARANCE (test code = 5477375036) Clear Clear COLOR (test code = 3234859658) Yellow Yellow PH (test code = 7289977004) 4.8-8.0 SP GRAVITY (test code = 2335142855) 1.003-1.030 GLU U QUAL (test code = 4908518826) Normal Normal BLOOD (test code = 4241524812) Negative Negative KETONES (test code = 5653248378) Negative Negative PROTEIN (test code = 2887-8) Negative Negative UROBILIN (test code = 9498007905) Normal Normal BILIRUBIN (test code = 8879281959) Negative Negative NITRITE (test code = 4572840285) Negative Negative LEUK LAURY (test code = 8388575754) Negative Negative RBC/HPF (test code = 7819948028) <1 See_Comment [Automated messa ge] The system which generated this result transmitted reference range: 0 - 3 HPF. The reference range was not used to interpret this result as normal/abnormal. WBC/HPF (test code = 5244705413) <1 See_Comment [Automated messa ge] The system which generated this result transmitted reference range: 0 - 5 HPF. The reference range was not used to interpret this result as normal/abnormal. BACTERIA (test code = 9964586630) Negative Negative Lab Interpretation (test code = 52850-2) Normal [facility] with [id number] 22:29:00* Test Item Value Reference Range Interpretation Comme nts WBC (test code = 6690-2) See_Comment [Automated messa ge] The system which generated this result transmitted reference range: 4.20 - 10.70 10*3/?L. The reference range was not used to interpret this result as normal/abnormal. RBC (test code = 789-8) See_Comment [Automated [employer]a ge] The system which generated this result [...] 34.9 g/dL 31.2-35 RDW-SD (test code = 12498-5) 41.4 fL 38.5-51.6 RDW-CV (test code = 788-0) 12.4 % 12.1-15.4 PLT (test code = 777-3) See_Comment [Automated [employer]ocal[employer]a ge] The system which generated this result transmitted reference range: 150 - 328 10*3/?L. The reference range was not used to interpret this result as normal/abnormal. MPV (test code = 90456-6) 11.0 fL 9.8-13 NRBC/100 WBC (test code = 8838967981) See_Comment [Automated [place] ssage] The system which generated this result transmitted reference range: 0.0 - 10.0 /100 WBCs. The reference range was not used to interpret this result as normal/abnormal. NRBC x10^3 (test code = 1693089831) <0.01 See_Comment [Automated me ssage] The system which generated this result transmitted reference range: 10*3/?L. The reference range was not used to interpret this result as normal/abnormal. GRAN MAT (NEUT) % (test code = 770-8) 72.0 % IMM GRAN % (test code = 3664141162) 0.40 % LYMPH % (test code = 736-9) 14.9 % MONO % (test code = 5905-5) 8.6 % EOS % (test code = 713-8) 3.7 % BASO % (test code = 706-2) 0.4 % GRAN MAT x10^3(ANC) (test code = 3124265966) 6.63 10*3/uL 1.99-6.95 IMM GRAN x10^3 (test code = 2897274314) 0.04 10*3/uL 0-0.06 LYMPH x10^3 (test code = 731-0) 1.37 10*3/uL 1.09-3.23 MONO x10^3 (test code = 742-7) 0.79 10*3/uL 0.36-1.02 EOS x10^3 (test code = 711-2) 0.34 10*3/uL 0.06-0.53 BASO x10^3 (test code = 704-7) 0.04 10*3/uL 0.01-0.09 [facility]"
[2024-04-15] MEDS ORDERED: FLUORESCEIN SODIUM 1 MG/WRAP ONE (04:51)
[2024-04-15] MEDS ORDERED: TETRACAINE HCL 0.5% 4ML OPTH ONE (04:51)
--- NOTE | 2024-04-15 04:59 | EDPHYS ---
Physician Documentation [facility] Name: Gio Stapleton Age: 28 yrs Sex: Male : 1995 Arrival Date: 04/15/2024 Time: 04:20 Bed 19 Private MD: ED Physician HPI: 04/15 04:51 This 28 yrs old Male presents to ER via Ambulatory with complaints of Eye ec2 Pain, Eye Problem. 04:51 Patient arrives today for evaluation of left eye pain and discharge. States that he has ec2 been having 1 day of symptoms. Patient complaining of discharge from the left eye. Patient reports also congestion. Denies any fevers or chills, no nausea or vomiting, does not wear any contact lenses. Reports that he may have gotten something in. Has not taken medication for symptoms. Historical: - Allergies: 04:48 Codeine; vc1 - Home Meds: 04:48 Trazodone Oral [Active]; vc1 - PMHx: 04:48 Bipolar disorder; vc1 - PSHx: 04:48 None; vc1 - Immunization history:: Adult Immunizations up to date. - Infectious Disease History:: Denies. - Social history:: Smoking status: Patient denies any tobacco usage or history of. Patient/guardian denies using alcohol, street drugs. ROS: 04:51 Constitutional: as per hpi ec2 Exam: 04:51 Constitutional: GEN: NAD Head: atraumatic Eyes: EOMI Ears: External ears are normal. ec2 Conjunctival injection, significant periorbital edema, no ecchymosis, no erythema, no warmth, intact extraocular motions, pupils are equal and responsive to light. CV: regular rate LUNGS: no respiratory distress ABD: non-distended SKIN: no evidence of rashes MSK: no evidence of trauma NEURO: moves all extremities equally Vital Signs: 04:47 BP 125 / 69; Pulse 84; Resp 17 S; Temp 97.5(O); Pulse Ox 98% on R/A; Weight 92.99 kg vc1 (R); Height 6 ft. 0 in. (R); 05:20 BP 126 / 71; Pulse 83; Resp 16 S; Pulse Ox 99% on R/A; jw7 04:47 Body Mass Index 27.80 (92.99 kg, 182.88 cm) vc1 Visual Acuity: 05:30 Left Eye Visual acuity 20/20, Pupil size 2 mm, Normal, React To Light, Reactive To jw7 Accomodation; Right Eye Visual acuity 20/20, Pupil size 2 mm, Normal, React To Light, Reactive To Accomodation; Both Eyes Visual acuity 20/20; Without Lenses; MDM: 04:48 Patient medically screened. ec2 04:59 Data reviewed: vital signs. ED course: I performed a corneal stain, no evidence of ec2 abrasion or ulceration. Will discharge home, prescribe him erythromycin ointment, possible viral conjunctivitis versus bacterial conjunctivitis. Return precautions given.. 04/15 04:51 Order name: Eye Tray; Complete Time: 04:53 vc1 04/15 04:51 Order name: Fluoresene Opth strip; Complete Time: 04:53 vc1 Administered Medications: 05:14 Drug: Tetracaine Ophthalmic Drops 0.5 % 1 drops Ophthalmic once Route: Ophthalmic; vc1 Site: left eye; Disposition Summary: 04/15/24 04:59 Discharge Ordered Notes: Location: Home ec2 Condition: Stable ec2 Diagnosis - Unspecified conjunctivitis ec2 Followup: ec2 - With: Private Physician - When: - Reason: Re-evaluation by your physician Followup: ec2 - With: Shabbir Feldman MD - When: - Reason: Recheck today's complaints Discharge Instructions: - Discharge Summary Sheet ec2 - Bacterial Conjunctivitis, Adult, [id number] ec2 Forms: - Medication Reconciliation Form ec2 - Antibiotic Education ec2 - Prescription Opioid Use ec2 - Patient Portal Instructions ec2 - Leadership Thank You Letter ec2 Prescriptions: - Erythromycin 5 mg/gram (0.5 %) Ophthalmic ointment - apply 1 centimeter OPHTHALMIC route 2-3 times daily for 7 days; 5 gram tube; ec2 Refills: 0, Product Selection Permitted Signatures: Becca Bach RN RN vc1 Gilmar Lafleur MD MD ec2 Corrections: (The following items were deleted from the chart) 04:49 04:48 Allergies: PENICILLINS; vc1 vc1
--- NOTE | 2024-04-15 04:59 | ER ---
Nurse's Notes [facility] Name: Gio Stapleton Age: 28 yrs Sex: Male : 1995 Arrival Date: 04/15/2024 Time: 04:20 Bed 19 Private MD: Diagnosis: Unspecified conjunctivitis Presentation: 04/15 04:47 Chief complaint: Patient states: left eye irritation and drainage X1 day. Coronavirus vc1 screen: Client denies travel out of the [place] in the last 14 days. At this time, the client does not indicate any symptoms associated with coronavirus-19. Ebola Screen: No symptoms or risks identified at this time. Mechanism of Injury: No Mechanism of Injury. The patient denies any loss of vision. Initial Sepsis Screen: Does the patient meet any 2 criteria? No. Patient's initial sepsis screen is negative. Does the patient have a suspected source of infection? No. Patient's initial sepsis screen is negative. Risk Assessment: Do you want to hurt yourself or someone else? Patient reports no desire to harm self or others. Onset of symptoms was April 14, 2024. 04:47 Method Of Arrival: Ambulatory vc1 04:47 Acuity: ELIEZER 4 vc1 Triage Assessment: 04:48 General: Appears in no apparent distress. uncomfortable, Behavior is calm, cooperative. vc1 Pain: Complains of pain in left eye. EENT: Eyes are tearing on left eye with exudate noted from left eye Reports nasal congestion. Neuro: No deficits noted. Gutierrez Agitation-Sedation Scale (RASS): 0 - Alert and Calm Level of Consciousness is awake, alert, obeys commands, Oriented to person, place, time, situation. Cardiovascular: No deficits noted. Denies chest pain, shortness of breath, Capillary refill < 3 seconds Clubbing of nail beds is absent JVD is absent Patient's skin is warm and dry. Respiratory: No deficits noted. Airway is patent Respiratory effort is even, unlabored, Respiratory pattern is regular, symmetrical. GI: No deficits noted. No signs and/or symptoms were reported involving the gastrointestinal system. : No deficits noted. No signs and/or symptoms were reported regarding the genitourinary system. Derm: No deficits noted. No signs and/or symptoms reported regarding the dermatologic system. Skin is intact, is healthy with good turgor, Skin is dry, Skin is normal, Skin temperature is warm. Musculoskeletal: No deficits noted. No signs and/or symptoms reported regarding the musculoskeletal system. Circulation, motion, and sensation intact. Range of motion: intact in all extremities. Historical: - Allergies: 04:48 Codeine; vc1 - Home Meds: 04:48 Trazodone Oral [Active]; vc1 - PMHx: 04:48 Bipolar disorder; vc1 - PSHx: 04:48 None; vc1 - Immunization history:: Adult Immunizations up to date. - Infectious Disease History:: Denies. - Social history:: Smoking status: Patient denies any tobacco usage or history of. Patient/guardian denies using alcohol, street drugs. Screenin:00 [facility] ED Fall Risk Assessment (Adult) History of falling in the last 3 months, jw7 including since admission No falls in past 3 months (0 pts) Confusion or Disorientation No (0 pts) Intoxicated or Sedated No (0 pts) Impaired Gait No (0 pts) Mobility Assist Device Used No (0 pt) Altered Elimination No (0 pt) Score/Fall Risk Level 0 - 2 = Low Risk Oriented to surroundings, Maintained a safe environment, Educated pt \T\ family on fall prevention, incl call for assistance when getting out of bed. Abuse screen: Denies threats or abuse. Denies injuries from another. Nutritional screening: No deficits noted. Tuberculosis screening: No symptoms or risk factors identified. Assessment: 05:00 General: Appears in no apparent distress. uncomfortable, Behavior is calm, cooperative, jw7 appropriate for age. Pain: Complains of pain in left eye Pain does not radiate. Quality of pain is described as burning, stinging, Pain began suddenly, Is continuous. Neuro: Level of Consciousness is awake, alert, obeys commands, Oriented to person, place, time, situation, Appropriate for age. Cardiovascular: Heart tones S1 S2 present Capillary refill < 3 seconds Clubbing of nail beds is absent JVD is absent Patient's skin is warm and dry. Respiratory: Airway is patent Trachea midline Respiratory effort is even, unlabored, Respiratory pattern is regular, symmetrical. GI: Abdomen is flat, non-distended, Bowel sounds present X 4 quads. Abd is soft and non tender X 4 quads. : No deficits noted. No signs and/or symptoms were reported regarding the genitourinary system. EENT: Sclera/Cornea are reddened in left eye and right eye Parent/caregiver reports the patient having pain in left eye nasal discharge. Derm: Skin is intact, is healthy with good turgor, Skin is dry, Skin is normal, Skin temperature is warm. Musculoskeletal: Circulation, motion, and sensation intact. Range of motion: intact in all extremities. Vital Signs: 04:47 BP 125 / 69; Pulse 84; Resp 17 S; Temp 97.5(O); Pulse Ox 98% on R/A; Weight 92.99 kg vc1 (R); Height 6 ft. 0 in. (R); 05:20 BP 126 / 71; Pulse 83; Resp 16 S; Pulse Ox 99% on R/A; jw7 04:47 Body Mass Index 27.80 (92.99 kg, 182.88 cm) vc1 Visual Acuity: 05:30 Left Eye Visual acuity 20/20, Pupil size 2 mm, Normal, React To Light, Reactive To jw7 Accomodation; Right Eye Visual acuity 20/20, Pupil size 2 mm, Normal, React To Light, Reactive To Accomodation; Both Eyes Visual acuity 20/20; Without Lenses; ED Course: 04:24 Patient arrived in ED. gm2 04:32 Gilmar Lafleur MD is Attending Physician. ec2 04:48 Triage completed. vc1 04:48 Arm band placed on right wrist. vc1 04:53 Jacquie Garibay RN is Primary Nurse. jw7 04:59 Shabbir Feldman MD is Referral Physician. ec2 05:00 Patient has correct armband on for positive identification. Bed in low position. Call jw7 light in reach. Side rails up X 1. Provided Education on: Use of Call Light. 05:30 No provider procedures requiring assistance completed. Patient did not have IV access jw7 during this emergency room visit. Administered Medications: 05:14 Drug: Tetracaine Ophthalmic Drops 0.5 % 1 drops Ophthalmic once Route: Ophthalmic; vc1 Site: left eye; Medication: 05:30 VIS not applicable for this client. jw7 Outcome: 04:59 Discharge ordered by . ec2 05:30 Discharged to home ambulatory, jw7 05:30 Condition: stable 05:30 Discharge instructions given to patient, Instructed on discharge instructions, follow up and referral plans. medication usage, Demonstrated understanding of instructions, follow-up care, medications, Prescriptions given X 1, 05:31 Patient left the ED. jw7 Signatures: Becca Bach RN RN vc1 Jacquie Garibay RN RN jw7 Gilmar Lafleur MD MD ec2 Sabrina Smith 2 Corrections: (The following items were deleted from the chart) 04:49 04:48 Allergies: PENICILLINS; vc1 vc1
[2024-04-15 05:58] VITALS: BP 126/71; TEMP 97.5; O2SAT 99
== END 2024-04-15 05:31 | disposition home or self-care (01) ==
LOC: ER 04:20
DX: H10.9 Unspecified conjunctivitis (principal)
CPT/HCPCS: 99283